=== PATIENT | female | born 1985 | race Caucasian/White ===

== ENCOUNTER 2017-02-16 01:24 | Emergency (ER) | payer BC ==
--- NOTE | 2017-02-16 02:19 | PDOC ---
History of Present Illness - General Stated Complaint: RIGHT SIDE PAIN Time Seen by Provider: 02/16/17 02:10 History Source: Patient Exam Limitations: No Limitations - History of Present Illness Initial Comments: 02/16/17 02:20 31-year-old female with no medical history presents to the emergency department complaining of pain to the right distal lateral rib area. Pain is described as 6 /10 dull nonradiating intermittent discomfort. Pain is exacerbated on cough and alleviated minimally with ibuprofen and rest. Patient denies fever, chills, headache, dizziness, lightheadedness, facial pain, rhinorrhea, nasal congestion , sore throat, neck pain/stiffness, back pains, chest pain, shortness of breath , abdominal pains, flank pains, urinary symptoms. Patient states the pain started 3 days ago when she was violently coughing. Patient's and taking Mucinex for her cough which she feels that is getting better. Timing/Duration: other (x3d) Past History - Past Medical History Allergies/Adverse Reactions: Allergies Allergy/AdvReac Type Severity Reaction Status Date / Time No Known Allergies Allergy Verified 02/16/17 02:22 Home Medications: Ambulatory Orders Guaifenesin [Mucinex -] 600 mg PO BID 02/16/17 Review of Systems - Review of Systems Able to Perform ROS?: Yes Comments:: 02/16/17 02:20 CONSTITUTIONAL: Absent: fever, chills, diaphoresis, generalized weakness, malaise, loss of appetite HEENT: Absent: rhinorrhea, nasal congestion, throat pain, throat swelling, difficulty swallowing, mouth swelling, ear pain, eye pain, visual Changes CARDIOVASCULAR: Absent: chest pain, loss of consciousness, palpitations, irregular heart rate, peripheral edema RESPIRATORY: +cough/ lat distal right rib pain Absent: shortness of breath, dyspnea with exertion, orthopnea, wheezing, stridor , hemoptysis GASTROINTESTINAL: Absent: abdominal pain, abdominal distension, nausea, vomiting, diarrhea, constipation, melena, hematochezia GENITOURINARY: Absent: dysuria, frequency, urgency, hesitancy, hematuria, flank pain, genital pain MUSCULOSKELETAL: Absent: myalgia, arthralgia, joint swelling SKIN: Absent: rash, itching, pallor HEMATOLOGIC/IMMUNOLOGIC: Absent: easy bleeding, easy bruising, lymphadenopathy, frequent infections ENDOCRINE: Absent: unexplained weight gain, unexplained weight loss, heat intolerance, cold intolerance NEUROLOGIC: Absent: headache, focal weakness or paresthesias, dizziness, unsteady gait, seizure, mental status changes, bladder or bowel incontinence Is the patient limited Latvian proficient: No *Physical Exam - Physical Exam Comments: 02/16/17 02:20 GENERAL: Well developed, well nourished. Awake and alert. No acute distress. HEENT: Normocephalic, atraumatic. PERRLA, EOMI. No conjunctival pallor. Sclera are non- icteric. Moist mucous membranes. Oropharynx is clear. NECK: Supple. Full ROM. No JVD. Carotid pulses 2+ and symmetric, without bruits. No thyromegaly. No lymphadenopathy. CARDIOVASCULAR: Regular rate and rhythm. No murmurs, rubs, or gallops. Distal pulses are 2+ and symmetric. PULMONARY: No evidence of respiratory distress. Lungs clear to auscultation bilaterally. No wheezing, rales or rhonchi. ABDOMINAL: Soft. Non-tender. Non-distended. No rebound or guarding. No organomegaly. Normoactive bowel sounds. MUSCULOSKELETAL +Pain to palp to distal right lat ribs Normal range of motion at all joints. No bony deformities or tenderness. No CVA tenderness. EXTREMITIES: No cyanosis. No clubbing. No edema. No calf tenderness. SKIN: Warm and dry. Normal capillary refill. No rashes. No jaundice. ED Treatment Course - RADIOLOGY Radiograph Interpretation: 02/16/17 04:15 CXR NAD xray right ribs series: neg fx *DC/Admit/Observation/Transfer Diagnosis at time of Disposition: Muscle strain - Discharge Dispostion Disposition: HOME Condition at time of disposition: Stable - Referrals Referrals: Todd Cervantes MD [Staff Physician] - Yvon Juarez MD [Staff Physician] - - Patient Instructions Printed Discharge Instructions: DI for Muscle Strain Additional Instructions: Rest Tylenol alternating with motrin as needed for pain Follow up with your physican or the one listed on your discharge Return to the ER for severe/persistent/worsening symptoms - Post Discharge Activity Progress Note - Progress Note Progress Note: PT states she is pain free form the toradol im
[2017-02-16 02:25] VITALS: BP 142/78; PULSE 112; TEMP 98.6; BMI 19.8
[2017-02-16 02:36] LABS: URINE APPEARANCE CLEAR; URINE BILIRUBIN NEGATIVE (NEGATIVE); URINE BLOOD NEGATIVE (NEGATIVE); URINE COLOR STRAW; URINE GLUCOSE (UA) NEGATIVE (NEGATIVE); URINE KETONE NEGATIVE (NEGATIVE); URINE LEUK ESTERASE NEGATIVE (NEGATIVE); URINE NITRITE NEGATIVE (NEGATIVE); URINE PROTEIN NEGATIVE (NEGATIVE); URINE UROBILINOGEN NEGATIVE mg/dL (0.2-1.0)
[2017-02-16] MEDS ORDERED: KETOROLAC TROMETHAMINE 30 MG/1 ML VIAL IM ONE (02:51)
[2017-02-16] MEDS ORDERED: KETOROLAC TROMETHAMINE 30 MG/1 ML VIAL ONE (02:53)
== END 2017-02-16 04:19 | disposition home or self-care (01) ==
LOC: JER 01:24
PROC: 3E0233Z Introduction of Anti-inflammatory into Muscle, Percutaneous Approach (ICD-10-PCS; principal; 2017-02-16)
DX: S29.011A Strain of muscle and tendon of front wall of thorax, initial encounter (principal); S21.101A Unspecified open wound of right front wall of thorax without penetration into thoracic cavity, initial encounter; X58.XXXA Exposure to other specified factors, initial encounter; Y93.89 Activity, other specified; Y92.89 Other specified places as the place of occurrence of the external cause
CPT/HCPCS: 71020-TC; 71101-TC-RT; 81003; 84703; 99282-25